=== PATIENT | male | born 1950 ===

== ENCOUNTER 2020-07-20 06:53 | Day surgery (SDC) | payer OTHER | END 2020-07-20 10:50 | disposition home or self-care (01) | LOC: AMB-ENDOS 06:53 | PROVIDERS: ATTEND Colon & Rectal Surgery | DX: K62.89 Other specified diseases of anus and rectum (principal); K64.0 First degree hemorrhoids; Z20.828 Contact with and (suspected) exposure to other viral communicable diseases; Z93.3 Colostomy status ==

== ENCOUNTER 2020-08-28 11:30 | Inpatient (IN) | payer OTHER ==
[~2020-08-28] VITALS: Ht 167.6 cm; Wt 78.5 kg
[2020-08-28] MEDS ORDERED: GLIMEPIRIDE4 M1 PO (14:27)
[2020-08-28] MEDS ORDERED: FORTAMET500 MG PO (14:27)
[2020-08-28] MEDS ORDERED: OMEPRAZ PO (14:27)
[2020-08-28] MEDS ORDERED: ATORVASTATIN CA40 MG PO (14:28)
[2020-08-28] MEDS ORDERED: VITAMIN B122500 MCG PO (14:29)
[2020-08-28] MEDS ORDERED: GORDON'S VITE A75 GM PO (14:30)
[2020-09-05] MEDS ORDERED: OMEPRAZOLE40 MG PO (09:05)
[2020-09-05] MEDS ORDERED: TAMSULOSIN HCL0.4 MG (09:10)
== END 2020-09-13 15:59 | disposition home or self-care (01) | DRG 331 ==
LOC: SURH 09-04 07:35 → O/R 09-04 07:35 → SURH 09-04 11:30
PROVIDERS: ADMIT Colon & Rectal Surgery; ATTEND Colon & Rectal Surgery
PROC: 0WQF4ZZ Repair Abdominal Wall, Percutaneous Endoscopic Approach (ICD-10-PCS; 2020-09-04)
PROC: 0DJD8ZZ Inspection of Lower Intestinal Tract, Via Natural or Artificial Opening Endoscopic (ICD-10-PCS; 2020-09-04)
PROC: 0DBN4ZZ Excision of Sigmoid Colon, Percutaneous Endoscopic Approach (ICD-10-PCS; principal; 2020-09-04 22:00)
DX: Z43.3 Encounter for attention to colostomy (principal); K43.2 Incisional hernia without obstruction or gangrene; E11.9 Type 2 diabetes mellitus without complications; K66.0 Peritoneal adhesions (postprocedural) (postinfection); D12.7 Benign neoplasm of rectosigmoid junction

== ENCOUNTER 2021-10-04 06:29 | Day surgery (SDC) | payer OTHER ==
[~2021-10-04 06:29] MED LIST: ATORVASTATIN CA40 MG PO; FORTAMET500 MG PO; GLIMEPIRIDE4 M1 PO; GORDON'S VITE A75 GM PO; OMEPRAZ PO; OMEPRAZOLE40 MG PO; TAMSULOSIN HCL0.4 MG; VITAMIN B122500 MCG PO
== END 2021-10-04 10:45 | disposition home or self-care (01) ==
LOC: AMB-ENDOS 06:29
PROVIDERS: ATTEND Colon & Rectal Surgery
DX: K52.89 Other specified noninfective gastroenteritis and colitis (principal); K64.0 First degree hemorrhoids